=== PATIENT | female | born 1955 | race Caucasian/White ===

== ENCOUNTER 2016-07-08 18:55 | Emergency (ER) | payer MEDICAID ==
[2016-07-08] MEDS ORDERED: HYDROMORPHONE HCL 1 MG/ML CPJ IVP ONE (20:39)
[2016-07-08] MEDS ORDERED: DIAZEPAM 5 MG/1 ML TUBX IVP ONE (20:39)
[2016-07-08] MEDS ORDERED: PROMETHAZINE HCL 25 MG/ML VIAL IVP ONE (20:39)
[2016-07-08] MEDS ORDERED: KETOROLAC 30 MG/ML VIAL IVP ONE (20:39)
[2016-07-08 21:28] LABS: BASO % 0.3 % (0-6); EOS % 1.7 % (0-6); GRAN % 55.6 % (47-80); HEMATOCRIT 42.8 % (35.0-47.0); HEMOGLOBIN 14.7 gm/dl (11.6-16.0); LYMPH % 32.6 % (16-45); MEAN CELL VOLUME 86.1 fl (81-97); MEAN CORPUSCULAR HEMOGLOBIN 29.6 pg (27-33); MEAN CORPUSCULAR HGB CONC 34.3 g/dl (32-36); MEAN PLATELET VOLUME 10.6 fl (7.4-10.4); MONO % 9.8 % (0-9); PLATELET COUNT 284 K/uL (130-400); RED BLOOD COUNT 4.97 M/uL (3.80-5.40); RED CELL DISTRIBUTION WIDTH 13.5 % (11.5-14.5); WHITE BLOOD COUNT W/O DIFF 9.5 K/uL (4.2-12.2)
[2016-07-08 21:38] LABS: ANION GAP 13.2 (7-16); BLOOD UREA NITROGEN 12 mg/dL (7-17); CARBON DIOXIDE 24.8 mmol/L (22-30); CREATININE 0.7 mg/dL (0.52-1.04); EST GLOMERULAR FILTRATION RATE > 60 ml/min; GLUCOSE,RANDOM 90 mg/dL (70-110)
--- NOTE | 2016-07-08 22:31 | Emergency Department Record ---
History of Present Illness - General Chief Complaint: Back Pain/Injury Stated Complaint: PAIN IN BACK OF HEAD,RT EAR PAIN Time Seen by Provider: 07/08/16 20:09 Source: Patient Mode of Arrival: Ambulatory Limitations: No limitations - History of Present Illness Initial Comments: pt has been having back pain firt=st on one side then the other and now has neck pain that gets worse with movement. pt has a hx of neck problems since a childhood injury. pt does not recall any recent injury. pain is getting worse and is different then what shes had before. pn was 8/10 at home but motrin has helped. no numbness or weakness MD Complaint: Other (neck pain and head pain) Onset/Timin -: Days(s) Similar Symptoms Previously: Yes Place: Home Severity: Moderate Quality: Aching Improves With: Immobilization, Supine Worsens With: Movement, Sitting upright Context: Unknown Associated Symptoms: Headaches Treatments Prior to Arrival: NSAIDS Treatment Prior to Arrival Comment:: 800 mg ibuprofen - Related Data Previous Rx's Medication Instructions Recorded Cyclobenzaprine HCl [Flexeril] 10 mg PO TID #14 tablet 07/08/16 Hydrocodone/Acetaminophen [[place] 1 tab PO Q6H PRN #10 tab 07/08/16 5mg/325mg] Ibuprofen [Motrin 600Mg] 600 mg PO Q6H #20 tablet 07/08/16 Allergies Allergy/AdvReac Type Severity Reaction Status Date / Time mold AdvReac DIFFICULTY Verified 07/08/16 19:58 BREATHING Travel Screening - Travel/Exposure Within Last 30 Days Have you traveled within the last 30 days?: No - Travel/Exposure Within Last Year Have you traveled outside the [place] in the last year?: No - Additonal Travel Details Have you been exposed to anyone with a communicable illness?: No - Travel Symptoms Symptom Screening: Headache Review of Systems Reviewed: No additional complaints except as noted below Constitutional: Reports: As per HPI. Denies: Chills, Fever, Malaise, Night sweats, Weakness, Weight change Eyes: Reports: As per HPI. Denies: Eye discharge, Eye pain, Photophobia, Vision change ENT: Reports: As per HPI. Denies: Congestion, Dental pain, Ear pain, Epistaxis , Hearing loss, Throat pain Respiratory: Reports: As per HPI. Denies: Cough, Dyspnea, Hemoptysis, Stridor, Wheezes Cardiovascular: Reports: As per HPI. Denies: Arrhythmia, Chest pain, Dyspnea on exertion, Edema, Murmurs, Orthopnea, Palpitations, Paroxysmal nocturnal dyspnea, Rheumatic Fever, Syncope Endocrine: Reports: As per HPI. Denies: Fatigue, Heat or cold intolerance, Polydipsia, Polyuria Gastrointestinal: Reports: As per HPI. Denies: Abdominal pain, Constipation, Diarrhea, Hematemesis, Hematochezia, Melena, Nausea, Vomiting Genitourinary: Reports: As per HPI. Denies: Abnormal menses, Discharge, Dyspareunia, Dysuria, Frequency, Hematuria, Incontinence, Retention, Urgency Musculoskeletal: Reports: As per HPI. Denies: Arthralgia, Back pain, Gout, Joint swelling, Myalgia, Neck pain Skin: Reports: As per HPI. Denies: Bruising, Change in color, Change in hair/ nails, Lesions, Pruritus, Rash Neurological: Reports: As per HPI. Denies: Abnormal gait, Confusion, Headache, Numbness, Paresthesias, Seizure, Tingling, Tremors, Vertigo, Weakness Psychiatric: Reports: As per HPI. Denies: Anxiety, Auditory hallucinations, Depression, Homicidal thoughts, Suicidal thoughts, Visual hallucinations Hematological/Lymphatic: Reports: As per HPI. Denies: Anemia, Blood Clots, Easy bleeding, Easy bruising, Swollen glands Past Medical History - SOCIAL HISTORY Smoking Status: Never smoker Alcohol Use: None Drug Use: None - RESPIRATORY Hx Respiratory Disorders: No - CARDIOVASCULAR Hx Cardio Disorders: No - NEURO Hx Neuro Disorders: No - GI Hx GI Disorders: No - Hx Genitourinary Disorders: No - ENDOCRINE Hx Endocrine Disorders: No - MUSCULOSKELETAL Hx Musculoskeletal Disorders: No - PSYCH Hx Psych Problems: No - HEMATOLOGY/ONCOLOGY Hx Hematology/Oncology Disorders: No Comment:: pt does not receive blood products, Jainism Family Medical History Any Significant Family History?: Yes Hx Cancer: Brother/Sister Hx Diabetes: Mother, Brother/Sister, Grandparents Hx Heart Disease: Mother Physical Exam - General General Appearance: Alert, Oriented x3, Cooperative, Moderate distress - Head Head exam: Normal inspection - Eye Eye exam: Normal appearance, PERRL, EOMI Pupils: Normal accommodation - ENT ENT exam: Normal exam, Mucous membranes moist, Normal external ear exam, Normal orophraynx, TM's normal bilaterally Ear exam: Normal external inspection. negative: External canal tenderness Nasal Exam: Normal inspection. negative: Discharge, Sinus tenderness Mouth exam: Normal external inspection, Tongue normal Teeth exam: Normal inspection. negative: Dental caries Throat exam: Normal inspection. negative: Tonsillar erythema, Tonsillar exudate - Neck Neck exam: Tenderness. negative: Normal inspection, Full ROM - Respiratory Respiratory exam: Normal lung sounds bilaterally. negative: Respiratory distress - Cardiovascular Cardiovascular Exam: Regular rate, Normal rhythm, Normal heart sounds - GI/Abdominal GI/Abdominal exam: Soft, Normal bowel sounds. negative: Tenderness - Rectal Rectal exam: Deferred - exam: Deferred - Extremities Extremities exam: Normal inspection, Full ROM, Normal capillary refill. negative: Tenderness - Back Back exam: Reports: Normal inspection, Full ROM. Denies: Muscle spasm, Rash noted, Tenderness - Neurological Neurological exam: Alert, CN II-XII intact, Normal gait, Oriented X3 - Psychiatric Psychiatric exam: Normal affect, Normal mood - Skin Skin exam: Dry, Intact, Normal color, Warm Course Vital Signs 07/08/16 07/08/16 19:57 21:22 Temperature 98.3 F Pulse Rate 75 Pulse Rate [ 70 Pulse Ox Probe] Respiratory 16 18 Rate Blood Pressure 157/96 Blood Pressure 160/95 [Left Arm] Pulse Ox 95 96 - Reevaluation(s) Reevaluation #1: 07/08/16 22:30 cts show lacunar infarct, thyroid nodule, djd otherwise neg. Reevaluation #2: 07/08/16 22:31 pt feels much better Medical Decision Making - Lab Data Result diagrams: 07/08/16 21:05 07/08/16 21:05 Lab Results 07/08/16 07/08/16 Range/Units 21:05 21:05 WBC 9.5 (4.2-12.2) K/uL RBC 4.97 (3.80-5.40) M/uL Hgb 14.7 (11.6-16.0) gm/dl Hct 42.8 (35.0-47.0) % MCV 86.1 (81-97) fl MCH 29.6 (27-33) pg MCHC 34.3 (32-36) g/dl RDW 13.5 (11.5-14.5) % Plt Count 284 (130-400) K/uL MPV 10.6 H (7.4-10.4) fl Gran % 55.6 (47-80) % Lymphocytes % 32.6 (16-45) % Monocytes % 9.8 H (0-9) % Eosinophils % 1.7 (0-6) % Basophils % 0.3 (0-6) % Sodium 137 (136-145) mmol/L Potassium 4.2 (3.5-5.1) mmol/L Chloride 99 (98-107) mmol/L Carbon Dioxide 24.8 (22-30) mmol/L Anion Gap 13.2 (7-16) BUN 12 (7-17) mg/dL Creatinine 0.7 (0.52-1.04) mg/dL Estimated GFR > 60 ml/min Random Glucose 90 (70-110) mg/dL Calcium 10.0 (8.5-10.1) mg/dL Disposition Disposition: Discharge Clinical Impression: Acute torticollis Headache Qualifiers: Headache type: unspecified Headache chronicity pattern: acute headache Intractability: intractable Qualified Code(s): R51 - Headache Disposition: Home, Self-Care Condition: (1) Good Instructions: Spasmodic Torticollis (ED) Additional Instructions: follow up with family doctor. return sooner if worse. moist heat to neck Prescriptions: Cyclobenzaprine HCl [Flexeril] 10 mg PO TID #14 tablet Ibuprofen [Motrin 600Mg] 600 mg PO Q6H #20 tablet Hydrocodone/Acetaminophen [[place] 5mg/325mg] 1 tab PO Q6H PRN #10 tab PRN Reason: Pain - General Forms: Patient Portal Access
== END 2016-07-08 22:30 | disposition home or self-care (01) ==
LOC: ER 18:55
DX: M43.6 Torticollis (principal); R51 Headache
CPT/HCPCS: 70450; 72125; 80048; 85025; 96374; 96375; 99284; J1170; J1885; J2550; J3360

== ENCOUNTER 2016-07-09 04:15 | Emergency (ER) | payer MEDICAID ==
[2016-07-09] MEDS ORDERED: HYDROMORPHONE HCL 1 MG/ML CPJ IVP ONE (04:47)
[2016-07-09 05:04] LABS: BASO % 0.3 % (0-6); EOS % 1.1 % (0-6); GRAN % 62.7 % (47-80); HEMATOCRIT 42.3 % (35.0-47.0); HEMOGLOBIN 14.4 gm/dl (11.6-16.0); LYMPH % 24.3 % (16-45); MEAN CELL VOLUME 86.3 fl (81-97); MEAN CORPUSCULAR HEMOGLOBIN 29.4 pg (27-33); MEAN PLATELET VOLUME 10.4 fl (7.4-10.4); MONO % 11.6 % (0-9); PLATELET COUNT 284 K/uL (130-400); RED CELL DISTRIBUTION WIDTH 13.5 % (11.5-14.5); WHITE BLOOD COUNT W/O DIFF 9.7 K/uL (4.2-12.2)
--- NOTE | 2016-07-09 05:45 | Emergency Department Record ---
History of Present Illness - General Chief Complaint: Headache Migraine Stated Complaint: HEADACHE Time Seen by Provider: 07/09/16 04:25 Source: Patient Mode of Arrival: Ambulatory Limitations: No limitations - History of Present Illness Initial Comments: pt here for the second time in 10hrs for neck pain that goes up into her head. she was here earlier stating she had a back ache on one side and then the other through the week and now it has moved up into her neck and head. she had a neg head and c-spine ct on her first visit [for anything acute but there was djd] she felt better when she left and went home and went to bed. her rxs were mistakenly left here [nurse forgot to give them to her]. when pt woke up she found herself sleeping on her stomach and her headache was back. so she came back in. she is concerned about what might be causing her headache. she states movement makes it worse . she states she was reading [employer] and became scared Onset/Timin -: Minutes(s) Onset Description: Sudden Location: Diffuse Severity: Severe Severity scale (1-10): 8 Quality: Sharp, Throbbing Consistency: Constant Improves With: Medication Worsens With: Exertion/activity, Light, Movement of head/neck, Sitting/standing Context: Occured at rest Associated Symptoms: Neck stiffness, Tingling/numbness Treatments Prior to Arrival: Ibuprofen Treatment Prior to Arrival Comment:: 4 hours ago - Related Data Previous Rx's Medication Instructions Recorded Cyclobenzaprine HCl [Flexeril] 10 mg PO TID #14 tablet 07/08/16 Hydrocodone/Acetaminophen [[place] 1 tab PO Q6H PRN #10 tab 07/08/16 5mg/325mg] Ibuprofen [Motrin 600Mg] 600 mg PO Q6H #20 tablet 07/08/16 Allergies Allergy/AdvReac Type Severity Reaction Status Date / Time mold AdvReac DIFFICULTY Verified 07/08/16 19:58 BREATHING Travel Screening - Travel/Exposure Within Last 30 Days Have you traveled within the last 30 days?: No - Travel/Exposure Within Last Year Have you traveled outside the [place] in the last year?: No - Additonal Travel Details Have you been exposed to anyone with a communicable illness?: No - Travel Symptoms Symptom Screening: Headache Review of Systems Reviewed: No additional complaints except as noted below Constitutional: Reports: As per HPI. Denies: Chills, Fever, Malaise, Night sweats, Weakness, Weight change Eyes: Reports: As per HPI. Denies: Eye discharge, Eye pain, Photophobia, Vision change ENT: Reports: As per HPI. Denies: Congestion, Dental pain, Ear pain, Epistaxis , Hearing loss, Throat pain Respiratory: Reports: As per HPI. Denies: Cough, Dyspnea, Hemoptysis, Stridor, Wheezes Cardiovascular: Reports: As per HPI. Denies: Arrhythmia, Chest pain, Dyspnea on exertion, Edema, Murmurs, Orthopnea, Palpitations, Paroxysmal nocturnal dyspnea, Rheumatic Fever, Syncope Endocrine: Reports: As per HPI. Denies: Fatigue, Heat or cold intolerance, Polydipsia, Polyuria Gastrointestinal: Reports: As per HPI. Denies: Abdominal pain, Constipation, Diarrhea, Hematemesis, Hematochezia, Melena, Nausea, Vomiting Genitourinary: Reports: As per HPI. Denies: Abnormal menses, Discharge, Dyspareunia, Dysuria, Frequency, Hematuria, Incontinence, Retention, Urgency Musculoskeletal: Reports: As per HPI. Denies: Arthralgia, Back pain, Gout, Joint swelling, Myalgia, Neck pain Skin: Reports: As per HPI. Denies: Bruising, Change in color, Change in hair/ nails, Lesions, Pruritus, Rash Neurological: Reports: As per HPI. Denies: Abnormal gait, Confusion, Headache, Numbness, Paresthesias, Seizure, Tingling, Tremors, Vertigo, Weakness Psychiatric: Reports: As per HPI. Denies: Anxiety, Auditory hallucinations, Depression, Homicidal thoughts, Suicidal thoughts, Visual hallucinations Hematological/Lymphatic: Reports: As per HPI. Denies: Anemia, Blood Clots, Easy bleeding, Easy bruising, Swollen glands Past Medical History - SOCIAL HISTORY Smoking Status: Never smoker Alcohol Use: None Drug Use: None - RESPIRATORY Hx Respiratory Disorders: No - CARDIOVASCULAR Hx Cardio Disorders: No - NEURO Hx Neuro Disorders: No - GI Hx GI Disorders: No - Hx Genitourinary Disorders: No - ENDOCRINE Hx Endocrine Disorders: No - MUSCULOSKELETAL Hx Musculoskeletal Disorders: No - PSYCH Hx Psych Problems: No - HEMATOLOGY/ONCOLOGY Hx Hematology/Oncology Disorders: No Comment:: pt does not receive blood products, Denominational Family Medical History Any Significant Family History?: Yes Hx Cancer: Brother/Sister Hx Diabetes: Mother, Brother/Sister, Grandparents Hx Heart Disease: Mother Physical Exam - General General Appearance: Alert, Oriented x3, Cooperative, Mild distress - Head Head exam: Normal inspection - Eye Eye exam: Normal appearance, PERRL, EOMI Pupils: Normal accommodation - ENT ENT exam: Normal exam, Mucous membranes moist, Normal external ear exam, Normal orophraynx Ear exam: Normal external inspection. negative: External canal tenderness Nasal Exam: Normal inspection. negative: Discharge, Sinus tenderness Mouth exam: Normal external inspection, Tongue normal Teeth exam: Normal inspection. negative: Dental caries Throat exam: Normal inspection. negative: Tonsillar erythema, Tonsillar exudate - Neck Neck exam: Normal inspection, Full ROM. negative: Tenderness - Respiratory Respiratory exam: Normal lung sounds bilaterally. negative: Respiratory distress - Cardiovascular Cardiovascular Exam: Regular rate, Normal rhythm, Normal heart sounds - GI/Abdominal GI/Abdominal exam: Soft, Normal bowel sounds. negative: Tenderness - Rectal Rectal exam: Deferred - exam: Deferred - Extremities Extremities exam: Normal inspection, Full ROM, Normal capillary refill. negative: Tenderness - Back Back exam: Reports: Normal inspection, Full ROM. Denies: Muscle spasm, Rash noted, Tenderness - Neurological Neurological exam: Alert, CN II-XII intact, Normal gait, Oriented X3 - Psychiatric Psychiatric exam: Normal affect, Normal mood - Skin Skin exam: Dry, Intact, Normal color, Warm Course Vital Signs 07/09/16 04:16 Temperature 98.1 F Pulse Rate 95 H Respiratory 22 Rate Blood Pressure 160/105 Pulse Ox 94 L - Reevaluation(s) Reevaluation #1: 07/09/16 06:45 pt is better. pt does not want lp. cta of neck is neg Medical Decision Making - Lab Data Result diagrams: 07/09/16 04:50 Lab Results 07/09/16 Range/Units 04:50 WBC 9.7 (4.2-12.2) K/uL RBC 4.90 (3.80-5.40) M/uL Hgb 14.4 (11.6-16.0) gm/dl Hct 42.3 (35.0-47.0) % MCV 86.3 (81-97) fl MCH 29.4 (27-33) pg MCHC 34.0 (32-36) g/dl RDW 13.5 (11.5-14.5) % Plt Count 284 (130-400) K/uL MPV 10.4 (7.4-10.4) fl Gran % 62.7 (47-80) % Lymphocytes % 24.3 (16-45) % Monocytes % 11.6 H (0-9) % Eosinophils % 1.1 (0-6) % Basophils % 0.3 (0-6) % Disposition Disposition: Discharge Clinical Impression: Cervical radiculopathy Headache Qualifiers: Headache type: unspecified Headache chronicity pattern: acute headache Intractability: intractable Qualified Code(s): R51 - Headache Disposition: Home, Self-Care Condition: (1) Good Instructions: Acute Headache (ED), Cervical Radiculopathy (ED) Additional Instructions: follow up with family doctor. rest return sooner if worse Forms: Patient Portal Access
[2016-07-09] MEDS ORDERED: PROMETHAZINE HCL 25 MG/ML VIAL IVP ONE (06:00)
[2016-07-09 06:17] LABS: ERYTHROCYTE SEDIMENTATION RATE 9 mm/hr (0-30)
== END 2016-07-09 07:11 | disposition home or self-care (01) ==
LOC: ER 04:15
DX: M54.12 Radiculopathy, cervical region (principal); R51 Headache
CPT/HCPCS: 99284 ×2; 96374; 96375; 85025; 85651; 70496; 70498; Q9967; J1170; J2550